=== PATIENT | female | born 2000 | race Caucasian/White ===

== ENCOUNTER 2024-02-24 16:40 | Observation (INO) | payer MEDICAID ==
[~2024-02-24] VITALS: Ht 167.6 cm; Wt 118.4 kg
[2024-02-24 18:03] LABS: Basophils # (auto) 0 10 ^3/uL (0-0.2); Basophils % (auto) 0.5 % (0.0-2.0); Eosinophils # (auto) 0.1 10 ^3/uL (0-0.8); Eosinophils % (auto) 1.3 % (0.0-7.0); Hematocrit 31.9 % (36.0-46.0); Hemoglobin 10.4 g/dL (12.2-16.2); Lymphocytes # (auto) 2.3 10 ^3/uL (0.4-5.4); Lymphocytes % (auto) 28.6 % (10.0-50.0); Mean Corpuscular Hemoglobin 24.3 pg (28.0-32.0); Mean Corpuscular Hgb Conc. 32.7 g/dL (32.0-36.0); Mean Corpuscular Volume 74.4 fL (80.0-100.0); Monocytes # (auto) 0.9 10 ^3/uL (0-1.3); Monocytes % (auto) 11.1 % (0.0-12.0); Neutrophils # (auto) 4.7 10 ^3/uL (1.6-8.6); Neutrophils % (auto) 58.5 % (37.0-80.0); Nucleated Red Blood Cells % 0.1 %; Red Blood Cells 4.29 10^6/uL (4.0-5.20); Red Cell Distribution Width 14.8 % (11.8-14.3)
[2024-02-24 18:16] LABS: INR 0.93 (0.9-1.15); Partial Thromboplastin Time 23.1 SEC (24.5-34.5); Prothrombin Time 9.9 sec (9.3-11.8)
[2024-02-24 18:29] LABS: Alanine Aminotransferase 10 U/L (7-40); Alkaline Phosphatase 178 U/L (46-116); Anion Gap 9 (5-15); Aspartate Aminotransferase < 8 U/L (13-40); Bilirubin, Total 0.5 mg/dL (0.2-1.0); Blood Urea Nitrogen 6 mg/dL (9-23); Calcium 9.6 mg/dL (8.7-10.4); Carbon Dioxide 21 mmol/L (20-30); Chloride 108 mmol/L (98-107); Glucose 108 mg/dL (74-106); Potassium 3.8 mmol/L (3.5-5.1); Sodium 138 mmol/L (136-145); Total Protein 6.6 g/dL (5.7-8.2); Uric Acid 4.2 mg/dL (3.1-7.8)
[2024-02-24 19:02] LABS: Albumin 3.8 g/dL (3.2-4.8)
[2024-02-24 19:04] LABS: Protein, Urine 9.3 mg/dL (0.0-11.9)
[2024-02-24 19:06] LABS: Urine Amorphous Crystal FEW /hpf (None Seen); Urine Bacteria FEW /hpf (None Seen); Urine Blood Negative /uL (Negative); Urine Clarity Turbid (Clear); Urine Color Colorless (Yellow); Urine Protein, UAD Negative (Negative); Urine Specific Gravity 1.016 (1.001-1.035); Urine Urobilinogen Normal (Negative); Urine WBC 22 /hpf (0 - 5); Urine pH 6.5 (5.0-9.0)
[2024-02-24 19:07] LABS: Creatinine, Urine 81.23 mg/dL (30.0-125.0); Urine Protein/Creatinine Ratio 0.11
== END 2024-02-24 19:50 | disposition home or self-care (01) ==
LOC: LDRP 16:40
PROVIDERS: ADMIT Obstetrics & Gynecology; ATTEND Obstetrics & Gynecology
DX: O14.93 Unspecified pre-eclampsia, third trimester (principal); O36.63X9 Maternal care for excessive fetal growth, third trimester, other fetus; Z3A.32 32 weeks gestation of pregnancy
CPT/HCPCS: 36415; 59025; 76818; 80053; 81001; 81002; 82570; 84156; 84550; 85025; 85610; 85730; 94760; G0378

== ENCOUNTER 2024-03-02 10:45 | Observation (INO) | payer MEDICAID | END 2024-03-02 12:37 | disposition home or self-care (01) | LOC: LDRP 10:45 | PROVIDERS: ADMIT Obstetrics & Gynecology; ATTEND Obstetrics & Gynecology | DX: O36.63X0 Maternal care for excessive fetal growth, third trimester, not applicable or unspecified (principal); Z3A.33 33 weeks gestation of pregnancy; Z79.899 Other long term (current) drug therapy | CPT/HCPCS: 59025; 76818; 81002; 94760; G0378 ==

== ENCOUNTER 2024-03-10 08:11 | Observation (INO) | payer MEDICAID ==
[2024-03-10] MEDS ORDERED: PREN-96 PO (08:39)
== END 2024-03-10 09:55 | disposition home or self-care (01) ==
LOC: UNDOADMOB 08:11 → LDRP 08:11 → UNDODISOB 09:55
PROVIDERS: ADMIT Obstetrics & Gynecology; ATTEND Obstetrics & Gynecology
DX: O36.63X0 Maternal care for excessive fetal growth, third trimester, not applicable or unspecified (principal); Z3A.35 35 weeks gestation of pregnancy
CPT/HCPCS: 59025; 76818; 81002; 94760; G0378

== ENCOUNTER 2024-03-17 12:00 | Observation (INO) | payer MEDICAID ==
[~2024-03-17 12:00] MED LIST: PREN-96 PO
== END 2024-03-17 13:14 | disposition home or self-care (01) ==
LOC: LDRP 12:00
PROVIDERS: ADMIT Obstetrics & Gynecology; ATTEND Obstetrics & Gynecology
DX: O24.419 Gestational diabetes mellitus in pregnancy, unspecified control (principal); O36.63X9 Maternal care for excessive fetal growth, third trimester, other fetus; Z3A.36 36 weeks gestation of pregnancy
CPT/HCPCS: 59025; 76818; 81002; 94760; G0378

== ENCOUNTER 2024-03-24 12:14 | Observation (INO) | payer MEDICAID | END 2024-03-24 14:10 | disposition home or self-care (01) | LOC: LDRP 12:14 → UNDOADMOB 12:14 → LDRP 12:29 | PROVIDERS: ADMIT Obstetrics & Gynecology; ATTEND Obstetrics & Gynecology | DX: O36.63X0 Maternal care for excessive fetal growth, third trimester, not applicable or unspecified (principal); Z3A.37 37 weeks gestation of pregnancy | CPT/HCPCS: 59025; 76818; 81002; 94762; G0378 ==

== ENCOUNTER 2024-03-25 14:00 | Inpatient (IN) | payer MEDICAID ==
[~2024-03-25] VITALS: Ht 162.6 cm; Wt 77.1 kg
[2024-03-25] MEDS ORDERED: BUTORPHANOL TARTRATE 2 MG/1 ML VIAL IV PRN ×2 (17:15)
[2024-03-25] MEDS ORDERED: LIDOCAINE 2%HCL (LOCAL ANESTH.) INJ 20ML MDV IJ PRN (17:15)
[2024-03-25 17:44] LABS: Urine Bacteria None Seen /hpf (None Seen)
[2024-03-25 18:11] LABS: Eosinophils # (auto) 0.1 10 ^3/uL (0-0.8); Lymphocytes # (auto) 2.5 10 ^3/uL (0.4-5.4); Monocytes # (auto) 0.8 10 ^3/uL (0-1.3); Neutrophils # (auto) 4.4 10 ^3/uL (1.6-8.6); Nucleated Red Blood Cells % 0.2 %
[2024-03-25 18:13] LABS: Basophils # (auto) 0.1 10 ^3/uL (0-0.2); Basophils % (auto) 0.8 % (0.0-2.0); Eosinophils % (auto) 0.8 % (0.0-7.0); Hematocrit 33.9 % (36.0-46.0); Hemoglobin 11.2 g/dL (12.2-16.2); Lymphocytes % (auto) 31.8 % (10.0-50.0); Mean Corpuscular Hemoglobin 24.5 pg (28.0-32.0); Mean Corpuscular Hgb Conc. 32.9 g/dL (32.0-36.0); Mean Corpuscular Volume 74.5 fL (80.0-100.0); Monocytes % (auto) 10.8 % (0.0-12.0); Neutrophils % (auto) 55.8 % (37.0-80.0); Platelet Count (auto) 270 10^3/uL (140-450); Red Blood Cells 4.55 10^6/uL (4.0-5.20); Red Cell Distribution Width 15.9 % (11.8-14.3); White Blood Cell 7.9 10^3/uL (4.4-10.8)
[2024-03-25 18:24] LABS: Alkaline Phosphatase 320 U/L (46-116); Anion Gap 7 (5-15); Aspartate Aminotransferase 8 U/L (13-40); BUN/Creatinine Ratio 11.3 (10.0-20.0); Bilirubin, Total 0.5 mg/dL (0.2-1.0); Blood Urea Nitrogen 7 mg/dL (9-23); Calcium 9.5 mg/dL (8.7-10.4); Carbon Dioxide 22 mmol/L (20-30); Chloride 107 mmol/L (98-107); Glucose 83 mg/dL (74-106); Potassium 3.8 mmol/L (3.5-5.1); Sodium 136 mmol/L (136-145); Total Protein 6.9 g/dL (5.7-8.2); Uric Acid 5.2 mg/dL (3.1-7.8)
[2024-03-25 18:29] LABS: INR 0.93 (0.9-1.15); Partial Thromboplastin Time 23.1 SEC (24.5-34.5); Prothrombin Time 9.9 sec (9.3-11.8)
[2024-03-25 18:31] LABS: Protein, Urine 21.1 mg/dL (0.0-11.9)
[2024-03-25 18:32] LABS: Amphetamine Screen, Urine Neg (NEGATIVE); Benzodiazephine Screen, Urine Neg (NEGATIVE); Urine Blood Negative /uL (Negative); Urine Clarity Clear (Clear); Urine Color Light-Yellow (Yellow); Urine Mucus FEW (None Seen); Urine Protein, UAD TRACE (Negative); Urine Specific Gravity 1.017 (1.001-1.035); Urine Urobilinogen Normal (Negative); Urine WBC 2 /hpf (0 - 5); Urine pH 6.5 (5.0-9.0)
[2024-03-25 18:33] LABS: Barbiturate Scree,Urine Neg (NEGATIVE); Cannabinoid Screen, Urine Neg (NEGATIVE); Cocaine Screen, Urine Neg (NEGATIVE); Creatinine, Urine 100.66 mg/dL (30.0-125.0); Opiate Scree,Urine Neg (NEGATIVE); Phencyclidine Screen, Urine Neg (NEGATIVE); Urine Protein/Creatinine Ratio 0.21
[2024-03-25 18:34] LABS: Alanine Aminotransferase 9 U/L (7-40)
[2024-03-25] MEDS ORDERED: TERBUTALINE SULFATE 1 MG/ML 1ML VIAL SC PRN (18:45)
[2024-03-25] MEDS: PENICILLIN G POT 5MIL/D5 50ML 50 ML IV ONE (19:01)
[2024-03-25] MEDS ORDERED: CARBOPROST TROMETHAMINE 250 MCG/1ML VIAL IM PRN (19:45)
[2024-03-25] MEDS ORDERED: ONDANSETRON HCL 4 MG/2 ML VIAL IV PRN (19:45)
[2024-03-25] MEDS ORDERED: NALOXONE HCL 0.4 MG/ML VIAL IV ONE (21:00)
[2024-03-25] MEDS ORDERED: ePHEDrine SULFATE 50 MG/ML AMP IV ONE (21:00)
[2024-03-25] MEDS ORDERED: DIPHENOXYLATE W/ATROPINE 2.5 MG TAB PO SCH (22:00)
[2024-03-25] MEDS: LACTATED RINGER'S 1,000 ML IV ONE (22:10)
[2024-03-25] MEDS: ROPIVACAINE HCL 200 ML ONE (22:24)
[2024-03-25] MEDS: LACTATED RINGER'S 500 ML IV ONE (22:57)
[2024-03-25] MEDS: PENICILLIN G POTASSIUM 2,500,000 UNITS in D5W 5% 50 ML IV SCH (23:00)
[2024-03-25] MEDS: PHISODERM TOP SOLN 240ML BTL TOP PRN (23:03)
[2024-03-25] MEDS: WITCH HAZEL-GLYCERIN PAD TOP PRN (23:03)
[2024-03-25] MEDS: DERMOPLAST 60ML BOTTLE TOP PRN (23:03)
[2024-03-26] MEDS: LACT. RINGERS/OXYTOCIN 20UNITS 1,000 ML IV SCH (00:15)
[2024-03-26] MEDS: LIDOCAINE HCL 2 %PF INJ 10ML AMP IJ ONE (00:44)
[2024-03-26] MEDS ORDERED: LIDOCAINE HCL 2 %PF INJ 10ML AMP IJ ONE (00:45)
[2024-03-26] MEDS: LACTATED RINGER'S 1,000 ML IV SCH (02:24)
[2024-03-26] MEDS ORDERED: PENICILLIN G POTASSIUM 2,500,000 UNITS in D5W 5% 50 ML IV SCH (03:00)
[2024-03-26] MEDS: LACT. RINGERS/OXYTOCIN 20UNITS 500 ML IV ONE ×2 (03:34→03:37)
[2024-03-26] MEDS: METHYLERGONOVINE MALEATE 0.2 MG/ML AMP IM PRN (03:52)
[2024-03-26 05:01] VITALS: BP 127/73; PULSE 94; RESP 16; TEMP 98.5; O2SAT 98
[2024-03-26] MEDS: ACETAMINOPHEN 325 MG TAB PO PRN (06:22)
[2024-03-26 07:00] VITALS: BP 137/79; PULSE 91; RESP 16; TEMP 98.4; O2SAT 97
[2024-03-26 08:07] LABS: RPR Non Reactive (Non Reactive)
[2024-03-26 11:00] VITALS: BP 129/73; PULSE 88; RESP 16; TEMP 97.9; O2SAT 97
[2024-03-26] MEDS: IBUPROFEN 600 MG TAB PO PRN (11:57)
[2024-03-26 15:04] VITALS: BP 129/74; PULSE 86; RESP 16; TEMP 98.4; O2SAT 98
[2024-03-26 18:35] VITALS: BP 131/70; PULSE 83; RESP 18; TEMP 98.3; O2SAT 98
[2024-03-26 22:44] VITALS: BP 127/60; PULSE 80; RESP 16; TEMP 98.2; O2SAT 98
[2024-03-27 03:00] VITALS: BP 125/72; PULSE 78; RESP 16; TEMP 97.9; O2SAT 98
[2024-03-27 07:00] VITALS: BP 120/65; PULSE 70; RESP 16; TEMP 98; O2SAT 99
[2024-03-27 11:00] VITALS: BP 118/72; PULSE 66; RESP 18; TEMP 98.5; O2SAT 100
[2024-03-27 15:00] VITALS: BP 118/59; PULSE 98; RESP 14; TEMP 98.5; O2SAT 98
[2024-03-27] MEDS: miSOPROStol 100 mcg TAB PR PRN (16:07)
[2024-03-27] MEDS: miSOPROStol 100 mcg TAB SL PRN (16:08)
[2024-03-27 19:25] VITALS: BP 134/84; PULSE 85; RESP 16; TEMP 98.3; O2SAT 98
[2024-03-27 23:00] VITALS: BP 128/75; PULSE 90; RESP 14; TEMP 98.5; O2SAT 97
[2024-03-28 03:25] VITALS: BP 113/56; PULSE 62; RESP 14; TEMP 98.3; O2SAT 97
[2024-03-28 07:15] VITALS: BP 132/66; PULSE 100; RESP 16; TEMP 98.1
[2024-03-28 10:30] VITALS: BP 134/61; PULSE 78; RESP 16; TEMP 98
[2024-03-28 15:00] VITALS: BP 130/86; PULSE 80; RESP 16; TEMP 98.6
== END 2024-03-28 16:50 | disposition home or self-care (01) | DRG 560 ==
LOC: UNDOADMOB 14:00 → LDRP 14:00 → UNDOADMOB 14:26 → LDRP 16:48 → OBSVTOIN 16:48 → LDRP 03-28 09:05
PROVIDERS: ADMIT Obstetrics & Gynecology; ATTEND Obstetrics & Gynecology
PROC: 10E0XZZ Delivery of Products of Conception, External Approach (ICD-10-PCS; principal; 2024-03-26)
PROC: 3E033VJ Introduction of Other Hormone into Peripheral Vein, Percutaneous Approach (ICD-10-PCS; 2024-03-26)
PROC: 3E0R3BZ Introduction of Anesthetic Agent into Spinal Canal, Percutaneous Approach (ICD-10-PCS; 2024-03-26)
PROC: 00HU33Z Insertion of Infusion Device into Spinal Canal, Percutaneous Approach (ICD-10-PCS; 2024-03-26)
PROC: 10907ZC Drainage of Amniotic Fluid, Therapeutic from Products of Conception, Via Natural or Artificial Opening (ICD-10-PCS; 2024-03-26)
DX: O13.4 Gestational [pregnancy-induced] hypertension without significant proteinuria, complicating childbirth (principal); Z37.0 Single live birth; O72.1 Other immediate postpartum hemorrhage; E66.01 Morbid (severe) obesity due to excess calories; O99.824 Streptococcus B carrier state complicating childbirth; O99.214 Obesity complicating childbirth; Z3A.37 37 weeks gestation of pregnancy
CPT/HCPCS: 36415; 59025; 59409; 62282; 76805; 80053; 80307; 81001; 81002; 82570; 84112; 84156; 84550; 85025; 85610; 85730; 86592; 86803; 86850; 86900; 86901; 94760; 94762; 96360; 96361; 96365; 96366; 96372; G0378; J2540; J2590; J7060